=== PATIENT | male | born 1965 | race Caucasian/White ===

== ENCOUNTER 2017-06-30 16:46 | Emergency (ER) | payer BC ==
[2017-06-30] MEDS ORDERED: Aspirin 81 MG Tab.Chew PO ONE (17:06)
--- NOTE | 2017-06-30 17:11 | EDM.PDOC ---
<Edvin Hernandez - Last Filed: 06/30/17 17:42> ED HPI GENERAL MEDICAL PROBLEM - General Chief Complaint: Chest Pain Stated Complaint: [id number] HAD A HEART ATTACK Time Seen by Provider: 06/30/17 17:00 Source of Information: Reports: Patient History Limitations: Reports: No Limitations - History of Present Illness INITIAL COMMENTS - FREE TEXT/NARRATIVE: This 52 yo male patient reports to the ED with an acute onset of substernal chest pain and right arm pain. The patient reports his arm has been aching for the past 2 days. The patient reports his chest pain started about 1600, lasted for about 3 minutes and has completely resolved prior to his arrival in the ED. The patient also reports he has had a sore throat for the past couple of days. Onset: Today (chest pain started at about 1600), Gradual (right arm aching for the past 2 days ) Duration: Resolved Prior to Arrival Location: Reports: Chest, Upper Extremity, Right Quality: Reports: Ache, Sharp Severity: Moderate Improves with: Reports: None Worsens with: Reports: None Associated Symptoms: Reports: No Other Symptoms - Related Data Allergies Allergy/AdvReac Type Severity Reaction Status Date / Time No Known Allergies Allergy Verified 06/30/17 16:55 Home Meds: Home Meds . [No Known Home Meds] 06/30/17 [History] Past Medical History - Past Health History Medical/Surgical History: Denies Medical/Surgical History - Past Surgical History GI Surgical History: Reports: Hernia, Inguinal Social & Family History - Family History Family Medical History: Noncontributory - Tobacco Use Smoking Status *Q: Never Smoker - Caffeine Use Caffeine Use: Reports: None - Alcohol Use Days Per Week of Alcohol Use: 7 Number of Drinks Per Day: 2 Total Drinks Per Week: 14 Date of Last Drink: 06/30/17 Time of Last Drink: 15:30 - Recreational Drug Use Recreational Drug Use: No ED ROS GENERAL - Review of Systems Review Of Systems: ROS reveals no pertinent complaints other than HPI. ED EXAM, GENERAL - Physical Exam Exam: See Below Exam Limited By: No Limitations General Appearance: Alert, WD/WN, Anxious, Mild Distress Eye Exam: Bilateral Eye: EOMI, Normal Inspection, PERRL Ears: Normal External Exam, Normal Canal, Hearing Grossly Normal, Normal TMs Nose: Normal Inspection, Normal Mucosa, No Blood Throat/Mouth: Normal Inspection, Normal Lips, Normal Teeth, Normal Gums, Normal Voice, No Airway Compromise, Other (posterior pharynx is erythematous) Head: Atraumatic, Normocephalic Neck: Normal Inspection, Supple, Non-Tender, Full Range of Motion Respiratory/Chest: No Respiratory Distress, Lungs Clear, Normal Breath Sounds, No Accessory Muscle Use, Chest Non-Tender Cardiovascular: Normal Peripheral Pulses, Regular Rate, Rhythm, No Edema, No Gallop, No JVD, No Murmur, No Rub GI/Abdominal: Normal Bowel Sounds, Soft, Non-Tender, No Organomegaly, No Distention, No Abnormal Bruit, No Mass (Male) Exam: Deferred Rectal (Males) Exam: Deferred Back Exam: Normal Inspection, Full Range of Motion, NT Extremities: Normal Inspection, Normal Range of Motion, Non-Tender, Normal Capillary Refill, No Pedal Edema Neurological: Alert, Oriented, CN II-XII Intact, Normal Cognition, Normal Gait, Normal Reflexes, No Motor/Sensory Deficits Psychiatric: Normal Affect, Normal Mood Skin Exam: Warm, Dry, Intact, Normal Color, No Rash Lymphatic: No Adenopathy Course - Vital Signs Last Recorded V/S: Last Vital Signs Temp 98.2 F 06/30/17 18:27 Pulse 72 06/30/17 18:27 Resp 20 06/30/17 18:27 BP 138/80 06/30/17 18:27 Pulse Ox 92 L 06/30/17 18:27 - Orders/Labs/Meds Orders: Active Orders 24 hr Category Date Time Status EKG Documentation Completion [RC] ASDIRECTED Care 06/30/17 22:00 Active EKG Documentation Completion [RC] URGENT Care 06/30/17 16:48 Active CULTURE STREP A CONFIRMATION [RM] Stat Lab 06/30/17 20:45 Results STREP SCRN A RAPID W CULT CONF [] Stat Lab 06/30/17 20:45 Results Labs: Laboratory Tests 06/30/17 06/30/17 06/30/17 Range/Units 16:55 16:55 22:12 WBC 16.2 H (5.0-10.0) 10^3/uL RBC 5.29 (4.6-6.2) 10^6/uL Hgb 17.8 (14.0-18.0) g/dL Hct 51.6 (40.0-54.0) % MCV 97.5 (80-100) fL MCH 33.6 (27.0-34.0) pg MCHC 34.5 (33.0-35.0) g/dL Plt Count 254 (150-450) 10^3/uL Neut % (Auto) 61.9 (42.2-75.2) % Lymph % (Auto) 26.6 (20.5-50.1) % Gordon % (Auto) 9.5 H (2-8) % Eos % (Auto) 1.5 (1.0-3.0) % Baso % (Auto) 0.5 (0.0-1.0) % Add Manual Diff Yes Neutrophils % (Manual) 64 (42-75) % Band Neutrophils % 4 % Lymphocytes % (Manual) 21 (20-50) % Monocytes % (Manual) 10 H (2-8) % Eosinophils % (Manual) 1 (1-3) % Sodium 139 (135-145) mmol/L Potassium 3.0 L (3.6-5.0) mmol/L Chloride 102 (101-111) mmol/L Carbon Dioxide 28.0 (21.0-31.0) mmol/L Anion Gap 12.0 BUN 9 (7-18) mg/dL Creatinine 0.9 (0.6-1.3) mg/dL Est Cr Clr Drug Dosing 108.51 mL/min Estimated GFR (MDRD) > 60 BUN/Creatinine Ratio 10.00 Glucose 115 H (74-105) mg/dL Calcium 9.0 (8.4-10.2) mg/dl Total Bilirubin 0.6 (0.2-1.0) mg/dL AST 47 H (10-42) IU/L ALT 72 H (10-60) IU/L Alkaline Phosphatase 70 (42-121) IU/L Troponin I < 0.02 < 0.02 (0.00-0.02) ng/ml Total Protein 8.0 (6.7-8.2) g/dl Albumin 4.5 (3.2-5.5) g/dl Globulin 3.5 Albumin/Globulin Ratio 1.29 Meds: Medications Discontinued Medications Generic Name Dose Route Start Last Admin Trade Name Freq PRN Reason Stop Dose Admin Aspirin 324 mg 06/30/17 17:06 06/30/17 17:20 Aspirin PO 06/30/17 17:07 324 mg ONETIME ONE Administration Potassium Chloride 20 meq 06/30/17 20:39 06/30/17 21:29 Klor-Con 10 PO 06/30/17 20:40 20 meq ONETIME ONE Administration - Re-Assessments/Exams Free Text/Narrative Re-Assessment/Exam: 06/30/17 17:43 The patient was advised of the examination, lab, EKG and x-ray results. The patient was placed on extended ED for a repeat troponin level and EKG at 2200. Departure - Departure Disposition: Home, Self-Care 01 Clinical Impression: Non-cardiac chest pain Instructions: Nonspecific Chest Pain, [id number] Referrals: PCP,Unobtain [Primary Care Provider] - Forms: ED Department Discharge Additional Instructions: follow up with primary care this week urgent follow up if recurrent chest pain, with nausea, vomiting, sweating or radiation Enteric coated aspirin 81mg one daily <Aziza Mesa - Last Filed: 07/01/17 06:45> Course - Re-Assessments/Exams Free Text/Narrative Re-Assessment/Exam: Repeat troponin unchanged. Repeat EKG withut significant change. Departure - Departure Time of Disposition: 23:20 Condition: Good
[2017-06-30 17:23] LABS: CHLORIDE,CL 102 mmol/L (101-111); SODIUM,NA 139 mmol/L (135-145)
[2017-06-30] MEDS ORDERED: Potassium Chloride 10 MEQ Tab.ER PO ONE (20:39)
--- NOTE | 2017-07-07 12:02 | EKG ---
06/30/2017- VALENTINE MARLEY - FINDINGS: I reviewed the EKG and agree with the machine's reading. [facility] /[id number]
--- NOTE | 2017-08-10 15:19 | EKG ---
06/30/2017 - VALENTINE MARLEY - TIME: 2150 hours. FINDINGS: EKG, per my reading, shows sinus rhythm at a rate of 70s. [facility] /[id number]
--- NOTE | 2017-08-10 15:25 | EKG ---
06/30/2017 - VALENTINE MARLEY - TIME: 1653 hours. FINDINGS: EKG, per my reading, shows sinus rhythm at the rate of 84. [facility] /[id number]
== END 2017-06-30 23:20 | disposition home or self-care (01) ==
LOC: DL.ED 16:46
DX: R07.89 Other chest pain (principal)
CPT/HCPCS: 36415; 71010; 80053; 84484; 85025; 87081; 87430; 93005; 99285; A9270

== ENCOUNTER 2020-03-07 13:10 | Emergency (ER) | payer OTHER ==
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
[2020-03-07 13:55] LABS: ANION GAP 19.3 mEq/L (7-13)
[2020-03-07] MEDS ORDERED: fentaNYL 100 MCG/2 ML SDV IVPUSH ONE (14:30)
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
== END 2020-03-07 15:00 ==
LOC: DL.ED 13:10
DX: S32.60 Unspecified fracture of ischium (principal); S31.139A Puncture wound of abdominal wall without foreign body, unspecified quadrant without penetration into peritoneal cavity, initial encounter; W22.8XXA Striking against or struck by other objects, initial encounter
CPT/HCPCS: 36415; 72128; 72131; 74176; 80053; 80307; 85025; 96374; 99284; 99285-25; J3010